=== PATIENT | male | born 1980 | race Caucasian/White ===

== ENCOUNTER 2018-09-24 11:26 | Emergency (ER) | payer BC, OTHER ==
[2018-09-24] MEDS: TETRACAINE 0.5% 4 ML OPH BOTH EYES (13:10)
[2018-09-24] MEDS: FLUORESCEIN STRIP RIGHT EYE (13:10)
[2018-09-24] MEDS: FLUORESCEIN STRIP LEFT EYE (13:10)
== END 2018-09-24 13:36 | disposition home or self-care (01) ==
LOC: FTE 11:26
DX: H10.13 Acute atopic conjunctivitis, bilateral (principal)
CPT/HCPCS: 99283; Z7610

== ENCOUNTER 2018-09-26 13:07 | Emergency (ER) | payer BC ==
[2018-09-26 17:59] LABS: ADD MAN DIFF? NO; BASOPHILS % 0.4 % (0.0-2.0); EOSINOPHILS # 0.2 10^3/ul (0.0-0.5); EOSINOPHILS % 2.1 % (0.0-7.0); HEMATOCRIT 48.4 % (42.0-52.0); HEMOGLOBIN 16.1 g/dl (14.0-18.0); LYMPHOCYTES # 2.2 10^3/ul (0.8-2.9); LYMPHOCYTES % 28.8 % (15.0-51.0); MEAN CORPUSCULAR HEMOGLOBIN 26.1 pg (29.0-33.0); MEAN CORPUSCULAR HGB CONC 33.3 g/dl (32.0-37.0); MEAN CORPUSCULAR VOLUME 78.4 fl (82.0-101.0); MEAN PLATELET VOLUME 12.3 fl (7.4-10.4); MONOCYTE # 0.7 10^3/ul (0.3-0.9); MONOCYTES % 9.6 % (0.0-11.0); NEUTROPHIL # 4.5 10^3/ul (1.6-7.5); NEUTROPHILS % 58.6 % (39.0-77.0); PLATELET COUNT 164 10^3/UL (140-415); RED BLOOD COUNT 6.17 10^6/ul (4.70-6.10)
[2018-09-26 17:59] LABS: WHITE BLOOD COUNT 7.7 10^3/ul (4.8-10.8)
[2018-09-26 18:22] LABS: ANION GAP 11 (5-13); BLOOD UREA NITROGEN 10 mg/dl (7-20); CALCIUM 9.5 mg/dl (8.4-10.2); CARBON DIOXIDE 24 mmol/L (21-31); CHLORIDE 105 mmol/L (97-110); CREATININE 0.55 mg/dl (0.61-1.24); Estimated GFR > 60 mL/min (>60); GLUCOSE 88 mg/dl (70-220); POTASSIUM 4.2 mmol/L (3.5-5.1); SODIUM 140 mmol/L (135-144)
[2018-09-26 18:34] LABS: TROPONIN-I < 0.012 ng/ml (0.000-0.120)
== END 2018-09-26 21:10 | disposition home or self-care (01) ==
LOC: E/R 13:07
DX: R00.2 Palpitations (principal)
CPT/HCPCS: 36415; 71045; 80048; 84484; 85025; 93005; 99285-25

== ENCOUNTER 2018-10-25 19:20 | Emergency (ER) | payer BC | END 2018-10-25 21:37 | disposition home or self-care (01) | LOC: FTE 19:20 | DX: H10.13 Acute atopic conjunctivitis, bilateral (principal) | CPT/HCPCS: 99283; Z7502 ==